=== PATIENT | male | born 1960 | race Caucasian/White ===

== ENCOUNTER → 2017-08-10 | Outpatient (CLI) | payer OTHER ==
[~2017-08-10] MED LIST: FLOMAX0.4 MG PO; K-DUR 20 MEQ T20 MEQ PO; LOVASTATIN 20 M20 MG PO; MELATONIN1 M2 PO; ONDANSETRON HCL4 M2 PO; PAXIL10 MG PO; PROBIOTIC1 EAC1 PO; REQUIP 1 MG TABL1 M1 PO; TIROSINT100 MCG PO; VITAMIN B12-FO1 EAC1 PO; VITAMIN D3400 UNIT PO; VITAMINC500 PO
[2017-08-10 10:00] VITALS: BP 101/68
[2017-08-10 10:15] LABS: HEMATOCRIT 43.4 % (42.0-52.0); HEMOGLOBIN 14.8 gm/dL (14.0-18.0); MCH 29.3 pg (26.0-34.0); MCV 86.3 fL (80.0-100.0); RBC 5.03 mil/uL (4.50-6.00); RDW 12.7 % (10.5-14.5); WBC 6.2 thou/uL (4.0-11.0)
[2017-08-10 10:23] LABS: CALCIUM 8.5 mg/dL (8.5-10.1); CREATININE 1.1 mg/dL (0.7-1.3)
[2017-08-10 12:30] VITALS: BP 101/68
== END ==
LOC: OPONC 09:17
PROVIDERS: Family Medicine
DX: E86.0 Dehydration (principal)

== ENCOUNTER → 2021-06-17 | Outpatient (CLI) | payer OTHER ==
[2021-06-17 09:14] LABS: CREATININE 1.4 mg/dL (0.7-1.3)
== END ==
LOC: CAT 08:27
PROVIDERS: ATTEND Family Medicine
DX: R05.9 Cough, unspecified (principal)